=== PATIENT | female | born 1935 | race Caucasian/White ===

== ENCOUNTER 2016-08-12 08:13 | Outpatient (CLI) | payer MEDICARE ==
[~2016-08-12] VITALS: Ht 157.5 cm; Wt 53.6 kg
[2016-08-12] VITALS (10 sets, daily range): BP systolic 114–161; BP diastolic 43–75; Ht 157.5 cm; Wt 53.6 kg
--- NOTE | ~2016-08-12 | HEMODYNAMI ---
PATIENT:AMINTA TARANGO MEDICAL RECORD: [id number] : 39 LOCATION:[facility]# [id number] ADMISSION DATE: 08/12/16 Generatedon:08/12/201613:07 Patient name: AMINTA ATRANGO Patient #: [id number] SSN: D OB: 1935 Date of study: 08/12/2016 Page: Of Hemodynamic Procedure Report Patient Data Patient Demographics Procedure consent was obtained First Name: AMINTA Gender: Female Last Name: SUKHDEEP : 1935 Middle Initial: R Age: 81 year(s) Patient #: [id number] Race: Unknown Additional ID: [id number] Contact details Address: [address] [place] [address] State: [place] City: [place] Zip code: [address] Admission Admission Data Admission Date: 08/12/2016 Admission Time: 8:13 Room #: [facility] Procedure Procedure Types Cath Procedure Peripheral Cath Diagnostic Procedure Miscellaneous Procedure Description Procedure Date Procedure Date: 08/12/2016 Procedure Start Time: 12:00 Procedure Staff Name Function Donaldo Matt MD Performing Physician Lacy Silva RT Scrub Dallin Mathur RT Monitor Brittaney Pabon RN Nurse Regina Mcdaniels RN Nurse Procedure Data Cath Procedure Fluoroscopy Diagnostic fluoroscopy Total fluoroscopy Time: time: 17.2 min 17.2 min Diagnostic fluoroscopy Total fluoroscopy dose: 357 dose: 357 mGy mGy Procedure Medications Medication Administration Route Dosage Oxygen NC 6 l/min Heparin Flush Bag added to field 1 bags (1000units/500ml NS) Lidocaine 1% added to field 20 Hemodynamics Rest Heart Rate: 63 (bpm) Snapshots Pre Cath Intra NCS Post Cath Vital Signs Time Heart Resp SPO2 NIBP (mmHg) Rhythm Pain Sedation Rate (ipm) (%) Status Level (bpm) 11:47:13 53 13 100 119/98(109) NSR 0 (11) 9(A) , No pain 11:57:36 63 12 100 Measuring NSR 0 (11) 9(A) , No pain 11:57:48 62 12 100 149/69(94) NSR 0 (11) 9(A) , No pain 12:02:09 60 12 100 153/69(102) NSR 0 (11) 9(A) , No pain 12:06:29 65 13 100 155/76(107) NSR 0 (11) 9(A) , No pain 12:10:53 61 11 100 139/66(94) NSR 0 (11) 9(A) , No pain 12:15:25 69 13 100 Disturbed NSR 0 (11) 9(A) , No pain 12:19:52 59 11 100 144/59(95) NSR 0 (11) 9(A) , No pain 12:24:06 67 14 100 126/77(112) NSR 0 (11) 9(A) , No pain 12:29:21 60 12 100 167/76(92) NSR 0 (11) 9(A) , No pain 12:33:49 57 10 100 154/64(101) NSR 0 (11) 9(A) , No pain 12:38:11 57 18 100 147/69(100) NSR 0 (11) 9(A) , No pain 12:42:30 58 16 100 167/73(111) NSR 0 (11) 9(A) , No pain 12:46:52 66 13 100 166/85(121) NSR 0 (11) 10(A) , No pain 12:51:14 59 11 100 169/81(99) NSR 0 (11) 10(A) , No pain 12:55:42 65 12 100 166/71(104) NSR 0 (11) 10(A) , No pain 13:00:00 71 14 98 172/91(105) NSR 0 (11) 10(A) , No pain 13:04:00 70 16 97 No Cuff NSR 0 (11) 10(A) , No pain Medications Time Medication Route Dose Verified Delivered Reason Notes Effe ctiveness by by 11:55:26 Oxygen NC 6l/min Brittaney Brittaney used for Pabon Pabon military cook RN 11:55:35 Heparin Flush added 1 bags Brittaney Brittaney used for Bag to Pabon Pabon procedure (1000units/500ml field RN RN NS) 11:55:43 Lidocaine 1% added 20ml Brittaney Brittaney used for to shashank Craigkins procedure field RN aircraft maintenance director Log Time Note 11:24:11 Regina Mcdaniels RN sent for patient. Start room use. 11:24:12 Time tracking: Regular hours 11::28 Plan of Care:Hemodynamics will remain stable., Cardiac rhythm will remain stable., Comfort level will be maintained., Respiratory function will remain adequate., Patient/ family verbilizes understanding of procedure., Procedure tolerated without complication., Recovers from procedure without complications.. 11::46 Patient received from Outpatients to IR Alert and oriented. Tansferred to table in Prone position. 11::48 Correct patient and procedure confirmed by team. 11::50 Signed procedure consent form obtained from patient. 11:25:19 ECG and BP/O2 sat monitors applied to patient. 11:25:20 Full Disclosure recording started 11::24 - 11:25:30 H&P Date Dictated: 08/12/2016 H&P Addendum completed by physician on day of procedure. (MUST COMPLETE FOR ALL OUTPATIENTS). 11:25:32 Pre-procedure instructions explained to patient. 11:25:32 Pre-op teaching completed and patient verbalized understanding. 11:25:36 - 11:32:58 SEE ANESTHESIA NOTE FOR TIVA PRE PROCEDURE ::55 Thoracic area was prepped with dura-prep and draped in sterile fashion 11::57 Alarms reviewed by RValentina NValentina 11::57 Sharps counted by scrub and verified by R.N. :55:25 Procedure started. 11:55:26 Oxygen 6l/min NC was administered by Brittaney Pabon RN; used for procedure; 11:55:35 Heparin Flush Bag (1000units/500ml NS) 1 bags added to field was administered by Brittaney Pabon RN; used for procedure; 11:55:43 Lidocaine 1% 20ml vial added to field was administered by Brittaney Pabon RN; used for procedure; 11:55:46 Vital chart was started 11:57:08 Physician arrived 11:57:09 --------ALL STOP TIME OUT------ 11:57:12 Final Timeout: patient, procedure, and site verified with staff and physician. All members of the team are in agreement. 11:57:16 Thoracic site verified by team. 11:57:20 Physical assessment completed. ASA score P 3 - A patient with severe systemic disease as per Donaldo Matt MD. 11:57:25 Sedation plan: IV Moderate Sedation Propofol 12:00:40 Local anesthetic to Thoracic area T-6 with Lidocaine 1% by Donaldo Matt MD.INITIAL ACCESS ONLY 12:06:43 Margarita BONE CEMENT WITH NEEDLE AUTOPLEX Kit opened to sterile field. 12:06:44 Margarita BONE BX 11GA kit opened to sterile field. 12:06:47 MARGARITA 15/2 VERT AUGMENTATION opened to sterile field. 12:06:56 MARGARITA 10/2 AUGMENTAION GT KIT opened to sterile field. 12:07:01 MARGARITA 10/2 AUGMENTAION GT KIT opened to sterile field. 12:07:03 Margarita 11G Curved Needle opened to sterile field. 12:07:05 MARGARITA CANNULA ACCESS 10 G NEEDLE opened to sterile field. 12:07:44 Baseline sample Acquired. 12:16:32 BX T-6 12:21:19 Local anesthetic to Thoracic area T-10 with Lidocaine 1% by Donaldo Matt MD.ADDITIONAL ACCESS 12:31:44 Local anesthetic to Thoracic area with Lidocaine 1% by Donaldo Matt MD.ADDITIONAL ACCESS 12:58:04 Procedure ended.(Physican Out) 12:58:52 Fluoroscopy time 17.20 minutes. 12:58:58 Fluoroscopy dose: 357 mGy 12:58:58 Flurop Dose total: 357 12:59:00 Sharps counted by scrub and verified by R.N. 12:59:19 Insertion/operative site no bleeding no hematoma. 12:59:23 Post-op/insertion site Right Thoracic area dressed using a 4 x 4 and Tegaderm. 12:59:30 Post Thoracic area:stable 12:59:41 Post-procedure physical assessment completed. ASA score P 3 - A patient with severe systemic disease as per Donaldo Matt MD. 12:59:45 Post procedure rhythm: unchanged. 12:59:46 Patient needs reinforcement of post procedure teaching. 12:59:46 Procedure and supply charges have been captured, reviewed, submitted an d are correct. 13:05:53 Report given to Med/Surg. 13:05:57 Patient transfered to Med/Surg with Bed. 13:07:40 Vital chart was stopped Device Usage Item Name Manufacture Quantity Catalog Hospital Part Current Minim al Lot# / Number Charge Number Stock Stock Serial# Code Twilight BONE Twilight 1 [id number] 5 CEMENT WITH NEEDLE AUTOPLEX Kit Twilight BONE Margarita 1 [id number] [id number] 5 BX 11GA kit MARGARITA 15/2 Margarita 1 [id number] 029196 [id number] 5 VERT AUGMENTATION MARGARITA 10/2 Twilight 2 [phone] 849566 [id number] [id number] 5 AUGMENTAION GT KIT Margarita 11G Twilight 1 [id number] 760645 [id number] 5 Curved Needle MARGARITA Twilight 1 [id number] 640994 37489 [id number] 5 CANNULA ACCESS 10 G NEEDLE Signature Audit Stout Stage Time Signature Unsigned Intra-Procedure 08/12/2016 Dallin 1:07:36 PM Kareen RT (R) (CV) Signatures Monitor : Dallin Signature : Kareen RT Date : Time : [place] [address]
[2016-08-12 09:15] LABS: BASOPHILS 0.5 % (0-2); EOSINOPHILS 2.8 % (0-7); HEMATOCRIT 37.9 % (36.0-48.0); IMMATURE GRANULOCYTES 0.3 % (0-5); LYMPHOCYTES 24.9 % (15-50); MCH 27.1 pg (26.0-34.0); MCHC 31.7 g/dL (31.0-37.0); MCV 85.7 fL (80.0-100.0); MEAN PLATELET VOLUME 8.8 fL (7.4-10.4); MONOCYTES 10.9 % (2-11); NEUTROPHILS 60.6 % (40-80); PLATELET COUNT 201 10x3/uL (130-400); RBC 4.42 10x6/uL (4.00-5.40); RDW 18.4 % (11.5-14.5); WBC 6.3 10x3/uL (4.8-10.8)
[2016-08-12 09:22] LABS: APTT 21.5 SECONDS (22.8-39.4)
[2016-08-12 09:23] LABS: ANION GAP 12.2 mmol/L (8-16); CALCIUM 9.3 mg/dL (8.5-10.1); CARBON DIOXIDE 27.8 mmol/L (21.0-32.0); INR 0.91 (0.85-1.17); PROTIME 12.1 SECONDS (11.6-15.0)
[2016-08-12] MEDS ORDERED: LEVO-T50 MCG PO (09:43)
[2016-08-12] MEDS ORDERED: ROBAXIN500 MG PO (09:44)
[2016-08-12] MEDS ORDERED: GABAPENTIN100 MG PO (09:44)
[2016-08-12] MEDS ORDERED: FERREX 28 TABL1 EACH PO (09:45)
[2016-08-12] MEDS ORDERED: CALCIUM 500 + D1 TAB PO (09:45)
[2016-08-12] MEDS ORDERED: ACETAMINOPHEN325 MG PO (09:45)
[2016-08-12 09:56] LABS: APPEARANCE CLEAR (CLEAR); BILIRUBIN NEGATIVE (NEGATIVE); COLOR YELLOW (YELLOW); GLUCOSE NEGATIVE (NEGATIVE); KETONE NEGATIVE (NEGATIVE); LEUKOCYTE ESTERASE NEGATIVE (NEGATIVE); NITRITE NEGATIVE (NEGATIVE); PROTEIN NEGATIVE (NEGATIVE); SPECIFIC GRAVITY 1.015 (1.005-1.020); UROBILINOGEN NORMAL (NORMAL)
--- NOTE | 2016-08-12 16:25 | NUR ---
PATIENT AMBULATED TO THE BATHROOM USING CANE, INDEPENDENTLY. WALKED BESIDE PATIENT. PATIENT DID NOT REQUIRE ASSISTANCE. ASSISTED PATIENT BACK TO BED.
--- NOTE | 2016-08-12 18:38 | NUR ---
PATIENT RESTING QUIETLY WITH EYES CLOSED. NO SIGNS OF DISTRESS NOTED.
--- NOTE | 2016-08-12 22:04 | NUR ---
ASSESSED AT THE BEGINNING OF THE SHIFT. PT IS ALERT AND ORIENTED, ABLE TO VERBALIZE NEEDS. SHE HAS A FRIEND STAYING WITH HER DURING THE NIGHT. WE HAVE ASSISTED HER UP TO THE BATHROOM TO VOID AND SHE IS DOING WELL. JUST WHILE AGO SHE CALLED FOR PAIN MEDS AND RECEIVED THEM. SHE IS HOPING THIS WILL HELP HER SLEEP WELL. THERE ARE DRESSINGS X'S 3 THAT ARE ALL DRY AND INTACT. SHE STATED IS IS HARD ON HER TO SLEEP ON HER BACK BECAUSE OF THE DRESSINGS. THE BED IS LOW, RAILS UP X'S 2 WITH THE CALL LIGHT AT HAND.
[2016-08-13] VITALS: BP 102/36
[2016-08-13 04:00] VITALS: BP 94/47
[2016-08-13 07:51] VITALS: BP 135/48; BP 135/84
--- NOTE | 2016-08-13 08:12 | NUR ---
AWAKE AND ALERT. ORIENTED X3. NO C/O AT THIS TIME. LUNGS ARE CLEAR BILATERALLY, NO COUGH NOTED. SKIN IS INTACT WTIHOUT REDNESS EXCEPT 3 SMALL AREAS TO MID BACK WITH DRY INTACT DRESSINGS IN PLACE. SL TO LEFT HAND IS PATENT WTIHOUT REDNESS AT INSERTION SITE. DENIES NEEDS.
--- NOTE | 2016-08-13 11:25 | NUR ---
DISCHARGED TO HOME WITH FAMILY AMBULATORY. DISCHARGE INSTRUCTIONS GIVEN BOTH VERBALLY AND WRITTEN. ALL QUESTIONS ANSWERED. PATIENT VERBALIZED UNDERSTANDING OF SAME. SL TO LEFT HAND D/C WITH CATHETER INTACT. NEEDED MEDS CALLED TO PHARMACY OF CHOICE AND GIVEN HARD COPY FOR NARCOTICS.
== END 2016-08-13 11:26 | disposition home or self-care (01) ==
LOC: OBSVTIME → D.MS 08:13 → D.OPS 08:13 → D.SDCHOLD 08:13 → EDSTATUS 11:00 → OBSVTIME 12:00 → D.SDCHOLD 13:23 → D.MS 13:23 → D.OPS 08-13 11:26
PROVIDERS: Radiology Diagnostic Radiology
DX: S22.050A Wedge compression fracture of T5-T6 vertebra, initial encounter for closed fracture (principal); Z01.812 Encounter for preprocedural laboratory examination; S22.070A Wedge compression fracture of T9-T10 vertebra, initial encounter for closed fracture; S22.080A Wedge compression fracture of T11-T12 vertebra, initial encounter for closed fracture; X58.XXXA Exposure to other specified factors, initial encounter